=== PATIENT | female | born 1960 | race Caucasian/White ===

== ENCOUNTER 2018-10-12 01:25 | Emergency (ER) | payer MEDICARE ==
[~2018-10-12] VITALS: Ht 152.4 cm; Wt 72.7 kg
[2018-10-12 01:49] LABS: GLUCOSE,POINT OF CARE 533 MG/DL (70-110)
[2018-10-12] MEDS ORDERED: CITA-106 PO ×2 (01:51→02:16)
[2018-10-12] MEDS ORDERED: CLON1 PO ×2 (01:51→02:16)
[2018-10-12] MEDS ORDERED: ALBU8.5H8 IH (01:51)
[2018-10-12] MEDS ORDERED: SIMV-260 PO (01:51)
[2018-10-12] MEDS ORDERED: METF-960 PO (01:51)
[2018-10-12] MEDS ORDERED: BECL10.62 IH (01:51)
[2018-10-12] MEDS ORDERED: LISI-662 PO (01:51)
[2018-10-12] MEDS ORDERED: TRAZ-220 PO (01:51)
[2018-10-12] MEDS ORDERED: GABA-531 PO (01:57)
[2018-10-12] MEDS ORDERED: METH10SO PO (02:16)
[2018-10-12] MEDS ORDERED: METF-445 PO (02:16)
[2018-10-12] MEDS ORDERED: MICO133A TP (02:16)
[2018-10-12] MEDS ORDERED: SILV20CR11 TP (02:16)
[2018-10-12] MEDS ORDERED: LORA10TA7 PO (02:16)
[2018-10-12] MEDS ORDERED: POLY17PO29 PO (02:16)
[2018-10-12] MEDS ORDERED: MET500 PO (02:16)
[2018-10-12] MEDS ORDERED: INSULIN REGULAR, HUMAN 100 UNITS/ML IVP ONE (02:45)
[2018-10-12] MEDS ORDERED: SODIUM CHLORIDE 0.9% 1,000 ML IV ONE (02:45)
[2018-10-12] MEDS ORDERED: KETOROLAC TROMETHAMINE 60 MG/2 ML VIAL IM ONE (03:15)
[2018-10-12 03:21] LABS: BASOPHILS % (AUTO) 0.7 % (0.0-2.0); EOSINOPHILS % (AUTO) 1.7 % (1.0-6.0); HEMATOCRIT 40.8 % (36-46); HEMOGLOBIN 13.5 g/dL (12.0-16.0); LYMPHOCYTES # (AUTO) 3.3 K/uL (1.0-4.8); LYMPHOCYTES % (AUTO) 40.6 % (22.0-44.0); MEAN CORPUSCULAR HEMOGLOBIN 31.2 pg (26.0-34.0); MEAN CORPUSCULAR VOLUME 95 fL (80-100); MONOCYTES # (AUTO) 0.6 K/uL (0.1-1.0); PLATELET COUNT (AUTO) 212 K/uL (150-450); RED BLOOD CELL COUNT(AUTO) 4.32 MIL/uL (4.00-5.20); RED CELL DISTRIBUTION WIDTH 14.2 % (11.5-14.5)
[2018-10-12] MEDS ORDERED: AMOX TR/POT CLAV 875 MG/125 MG TABLET PO ONE (03:30)
[2018-10-12] MEDS ORDERED: ClonazePAM 1 MG TABLET PO ONE (03:30)
[2018-10-12 03:35] LABS: ALBUMIN 3.2 g/dL (3.4-5.0); BILIRUBIN,TOTAL 0.3 mg/dL (0.1-1.0); CALCIUM, TOTAL 9.2 mg/dL (8.8-10.5); CREATININE 1.11 mg/dL (0.60-1.30); POTASSIUM 4.3 mmol/L (3.5-5.1); TOTAL PROTEIN, SERUM 6.9 g/dL (6.4-8.2)
[2018-10-12 03:55] LABS: GLUCOSE,POINT OF CARE 202 MG/DL (70-110)
[2018-10-12 04:54] VITALS: BP 122/84
== END 2018-10-12 05:31 | disposition home or self-care (01) ==
LOC: EMS 01:28
DX: E11.65 Type 2 diabetes mellitus with hyperglycemia (principal); B02.9 Zoster without complications; L03.116 Cellulitis of left lower limb; I10 Essential (primary) hypertension; E78.00 Pure hypercholesterolemia, unspecified; J45.909 Unspecified asthma, uncomplicated; F41.9 Anxiety disorder, unspecified; F32.9 Major depressive disorder, single episode, unspecified; Z88.2 Allergy status to sulfonamides; Z88.1 Allergy status to other antibiotic agents; Z88.8 Allergy status to other drugs, medicaments and biological substances; Z79.84 Long term (current) use of oral hypoglycemic drugs; Z79.899 Other long term (current) drug therapy
CPT/HCPCS: 36415; 80053; 82962; 85025; 96361; 96372; 96374; 99283; J1815; J1885; J7030

== ENCOUNTER 2018-10-12 18:36 | Emergency (ER) | payer MEDICARE ==
[~2018-10-12] VITALS: Ht 152.4 cm; Wt 72.7 kg
[~2018-10-12 18:36] MED LIST: ALBU8.5H8 IH; BECL10.62 IH; CITA-106 PO; CLON1 PO; GABA-531 PO; LISI-662 PO; LORA10TA7 PO; MET500 PO; METF-445 PO; METF-960 PO; METH10SO PO; MICO133A TP; POLY17PO29 PO; SILV20CR11 TP; SIMV-260 PO; TRAZ-220 PO
[2018-10-12] MEDS ORDERED: MetFORMIN HCL 850 MG TABLET PO ONE (22:00)
[2018-10-12] MEDS ORDERED: ALBUTEROL SULFATE HFA 90 MCG/PUFF 8 GM INHALER IH ONE (22:00)
[2018-10-12 22:53] VITALS: BP 126/74
[2018-10-13 10:30] LABS: GLUCOSE,POINT OF CARE 380 MG/DL (70-110)
== END 2018-10-12 23:00 | disposition home or self-care (01) ==
LOC: EMS 18:36
DX: E11.65 Type 2 diabetes mellitus with hyperglycemia (principal); J45.901 Unspecified asthma with (acute) exacerbation; F32.9 Major depressive disorder, single episode, unspecified; F41.9 Anxiety disorder, unspecified; E78.00 Pure hypercholesterolemia, unspecified; I10 Essential (primary) hypertension; F17.210 Nicotine dependence, cigarettes, uncomplicated; Z74.8 Other problems related to care provider dependency; Z98.51 Tubal ligation status; Z88.2 Allergy status to sulfonamides; Z88.5 Allergy status to narcotic agent; Z88.8 Allergy status to other drugs, medicaments and biological substances; Z79.84 Long term (current) use of oral hypoglycemic drugs
CPT/HCPCS: 94640; 99406; J3535

== ENCOUNTER 2018-10-13 20:07 | Emergency (ER) | payer MEDICARE ==
[~2018-10-13] VITALS: Ht 154.9 cm; Wt 72.3 kg
[2018-10-13 21:08] LABS: BASOPHILS % (AUTO) 0.9 % (0.0-2.0); EOSINOPHILS % (AUTO) 2.2 % (1.0-6.0); HEMATOCRIT 41.5 % (36-46); LYMPHOCYTES # (AUTO) 3.4 K/uL (1.0-4.8); LYMPHOCYTES % (AUTO) 41.6 % (22.0-44.0); MEAN CORPUSCULAR HEMOGLOBIN 31.1 pg (26.0-34.0); MEAN CORPUSCULAR HGB CONC 33.6 G/dL (31.0-37.0); MEAN CORPUSCULAR VOLUME 93 fL (80-100); MONOCYTES # (AUTO) 0.6 K/uL (0.1-1.0); MONOCYTES % (AUTO) 7.1 % (2.0-9.0); NEUTROPHILS # (AUTO) 3.9 K/uL (1.8-7.7); NEUTROPHILS % (AUTO) 48.2 % (40.0-70.0); PLATELET COUNT (AUTO) 234 K/uL (150-450); RED BLOOD CELL COUNT(AUTO) 4.49 MIL/uL (4.00-5.20); RED CELL DISTRIBUTION WIDTH 14.4 % (11.5-14.5)
[2018-10-13 21:14] LABS: GLUCOSE,POINT OF CARE 294 MG/DL (70-110)
[2018-10-13 21:21] LABS: ANION GAP 11 mmol/L (8-16); CALCIUM, TOTAL 9.7 mg/dL (8.8-10.5); CARBON DIOXIDE 25 mmol/L (22-29); CHLORIDE 100 mmol/L (98-107); CREATININE 0.89 mg/dL (0.60-1.30); GLOMERULAR FILTR. RATE CALC > 60 mL/min (>60); GLUCOSE,RANDOM 291 mg/dL (70-110); POTASSIUM 4.3 mmol/L (3.5-5.1); SODIUM SERUM 136 mmol/L (136-145); UREA NITROGEN, BLOOD 11 mg/dL (7-18)
[2018-10-13] MEDS: KETOROLAC TROMETHAMINE 60 MG/2 ML VIAL IM ONE ×2 (21:23→22:18)
[2018-10-13 21:28] LABS: ALANINE AMINOTRANSFERASE 37 U/L (12-78); ALBUMIN 3.4 g/dL (3.4-5.0); ALKALINE PHOSPHATASE 102 U/L (46-116); ASPARTATE AMINOTRANSFERASE 37 U/L (15-37); BILIRUBIN,TOTAL 0.4 mg/dL (0.1-1.0); TOTAL PROTEIN, SERUM 7.1 g/dL (6.4-8.2)
[2018-10-13] MEDS ORDERED: METHOCARBAMOL 500 MG TABLET PO ONE (21:45)
[2018-10-13] MEDS ORDERED: NAPROXEN 250 MG TABLET PO ONE (21:45)
[2018-10-13] MEDS ORDERED: METHOCARBAMOL 750 MG TABLET PO ONE (21:45)
[2018-10-13] MEDS ORDERED: AMOX TR/POT CLAV 875 MG/125 MG TABLET PO ONE (21:45)
[2018-10-13 23:52] LABS: APPEARANCE,URINE CLEAR (CLEAR); BILIRUBIN,URINE NEGATIVE (NEGATIVE); GLUCOSE, URINE (UA) >=1000 mg/dL (NEGATIVE); KETONES,URINE NEGATIVE (NEGATIVE); LEUKOCYTE ESTERASE ,URINE NEGATIVE (NEGATIVE); NITRATE,URINE POSITIVE (NEGATIVE); OCCULT BLOOD,URINE NEGATIVE (NEGATIVE); PH,URINE 5.5 (5.0-8.0); PROTEIN,URINE NEGATIVE (NEGATIVE); UROBILINOGEN,URINE 0.2 mg/dL (<=1.0)
[2018-10-14 00:01] LABS: BACTERIA,URINE Few /HPF (None Seen); RBC,URINE 0-2 /HPF (0-2); SQUAMOUS EPITHELIAL CELL,UR Few /LPF (None Seen); WBC,URINE 0-2 /HPF (0-5)
[2018-10-14 00:10] VITALS: BP 131/84
== END 2018-10-14 00:58 | disposition home or self-care (01) ==
LOC: EMS 20:09
DX: E11.65 Type 2 diabetes mellitus with hyperglycemia (principal); M54.9 Dorsalgia, unspecified; F41.9 Anxiety disorder, unspecified; J45.909 Unspecified asthma, uncomplicated; F32.9 Major depressive disorder, single episode, unspecified; E78.00 Pure hypercholesterolemia, unspecified; I10 Essential (primary) hypertension; F17.210 Nicotine dependence, cigarettes, uncomplicated; Z59.0 Homelessness; Z98.51 Tubal ligation status; Z88.2 Allergy status to sulfonamides; Z88.1 Allergy status to other antibiotic agents; Z88.8 Allergy status to other drugs, medicaments and biological substances; Z79.84 Long term (current) use of oral hypoglycemic drugs
CPT/HCPCS: 36415; 80053; 81001; 82962; 85025; 96372; 99283; J1885